=== PATIENT | female | born 1940 | race Caucasian/White ===

== ENCOUNTER 2017-04-29 09:01 | Inpatient (IN) ==
--- NOTE | 2017-04-26 21:54 | Discharge Summary ---
<Tena Carreon - Last Filed: 04/26/17 21:49> Date of Encounter: 04/26/17 - Discharge Diagnosis (1) Arthritis of right hip Priority: Primary Status: Acute (2) HTN (hypertension) Priority: Secondary Status: Chronic Qualifiers: Hypertension type: essential hypertension Qualified Code(s): I10 - Essential (primary) hypertension (3) CAD (coronary artery disease) Priority: Secondary Status: Chronic Qualifiers: Coronary Disease-Associated Artery/Lesion type: unspecified vessel or lesion type Associated angina: angina presence unspecified (4) COPD (chronic obstructive pulmonary disease) Priority: Secondary Status: Chronic Qualifiers: COPD type: unspecified COPD Qualified Code(s): J44.9 - Chronic obstructive pulmonary disease, unspecified (5) Tobacco use Priority: Secondary Status: Chronic (6) History of CA (myocardial infarction) Priority: Secondary Status: Chronic (7) AAA (abdominal aortic aneurysm) Priority: Secondary Status: Chronic Qualifiers: Presence of rupture: without rupture Qualified Code(s): I71.4 - Abdominal aortic aneurysm, without rupture - Discharge Medications Home Medications: Albuterol Sulfate [Albuterol Inhaler] 2 puff IH Q4HR PRN 09/19/15 [History] Atorvastatin [Lipitor] 80 mg PO DAILY 09/19/15 [History] Baclofen [Lioresal] 5 - 10 mg PO TID 09/19/15 [History] Carvedilol [Coreg] 3.125 mg PO BID 09/19/15 [History] Clopidogrel [Plavix] 75 mg PO DAILY 09/19/15 [History] LORazepam [Ativan] 0.5 mg PO TID 09/19/15 [History] Lisinopril [Zestril] 20 mg PO BID 09/19/15 [History] Omeprazole [PriLOSEC] 20 mg PO DAILY 09/19/15 [History] Aspirin Enteric Coated [Aspirin EC] 325 mg PO DAILY #21 tablet.dr 04/26/17 [Rx] OxyCODONE Immed Rel [Roxicodone 5 MG] 5 - 10 mg PO Q6HR PRN #40 tablet 04/26/17 [Rx] Aspirin [Lo-Dose Aspirin EC] 81 mg PO DAILY 04/29/17 [History] Calcium Carbonate/Vitamin D3 [Calcium 1,000 + D3 Caplet] 1 tab PO DAILY [History] Allergies/Adverse Reactions: Allergies Sulfa (Sulfonamide Antibiotics) Allergy (Unverified 04/29/17 09:44) Hives Primary care physician: Cornelius Butt CNP - Patient Status Disposition: Home, Self-Care Condition: Good - Discharge Instructions Follow Up With: Cornelius Butt CNP [Primary Care Provider] - - Hospital Course Hospital course: Ms. Olson is a 76 year old female - Time Spent with Patient Total time spent providing and/or coordinating discharge services: <Brigido Ritter - Last Filed: 04/30/17 08:06> Date of Encounter: 04/30/17 Time of Encounter: 08:06 - Discharge Diagnosis (1) Arthritis of right hip Priority: Primary Status: Acute (2) HTN (hypertension) Priority: Secondary Status: Chronic Qualifiers: Hypertension type: essential hypertension Qualified Code(s): I10 - Essential (primary) hypertension (3) CAD (coronary artery disease) Priority: Secondary Status: Chronic Qualifiers: Coronary Disease-Associated Artery/Lesion type: unspecified vessel or lesion type Associated angina: angina presence unspecified (4) COPD (chronic obstructive pulmonary disease) Priority: Secondary Status: Chronic Qualifiers: COPD type: unspecified COPD Qualified Code(s): J44.9 - Chronic obstructive pulmonary disease, unspecified (5) Tobacco use Priority: Secondary Status: Chronic (6) History of CA (myocardial infarction) Priority: Secondary Status: Chronic (7) AAA (abdominal aortic aneurysm) Priority: Secondary Status: Chronic Qualifiers: Presence of rupture: without rupture Qualified Code(s): I71.4 - Abdominal aortic aneurysm, without rupture (8) Acute blood loss anemia Priority: Primary Status: Acute Primary care physician: Cornelius Butt CNP - Patient Status Functional capacity at discharge: uses cane/walker Overall status at discharge: patient is progressing back to baseline - Hospital Course Hospital course: Ms. Olson is a 76 year old female The patient had an uneventful postoperative course. They received antibiotics and physical therapy and were discharged in stable condition. There will follow -up in the office in 2 weeks. Aspirin DVT prophylaxis - Time Spent with Patient Total time spent providing and/or coordinating discharge services:
[2017-04-29] MEDS ORDERED: Albuterol 2.5 MG/3 ML NEBULIZER IH ONE (09:20)
[2017-04-29] MEDS ORDERED: CeFAZolin Pre 2,000 MG/100 ML 2,000 MG/100 ML BAG IVPB ONE (09:20)
[2017-04-29] MEDS ORDERED: Ringers Solution, Lactated 1,000 ML IVC SCH (09:30)
--- NOTE | 2017-04-29 09:41 | History & Physical Report ---
Date of Encounter: 04/29/17 Time of Encounter: 09:41 24 Hour HP Update - Instructions Instructions: If the History and Physical is less than 30 days old and was completed prior to A.M. admission and or procedure and has NOT been updated on calendar day of procedure please complete this update prior to performing procedure. - Update Patient reports changes in Medical Condition: No Changes in examination, assessment, or condition: No Changes in Medication: No Preop tests/diagnostics Reviewed: Yes Surgery Remains Indicated: Yes Consent for Planned Operative Procedure(s) Verified: Yes - Pre-Operative Checklist Preoperative Checklist Indicated: No Prophylactic Antibiotic Ordered: Yes Is VTE Prophylaxis Indicated?: Yes
--- NOTE | 2017-04-29 09:55 | Anesthesia Evaluation PreOp ---
Date of Encounter: 04/29/17 Time of Encounter: 09:52 - Past History Planned Operation: r luisa Cardiac History: [place], HTN, Hyperlipidemia, Other (AAA) Pulmonary History: Smoker, Pack/yr (50), COPD, Snore, JASMIN Dx (unknown) PRINCIPAL SOLUTIONS ARCHITECT History: Denies Any Significant HX Other Medical History: Denies Any Significant HX, GERD (controlled), Other ( breast ca) Anesthesia History: No Prior Anesthetic Complications, Past Anesthesia ( hysterect, l breast lumpect) Alcohol Use: none Drug use: none Medications and Allergies Albuterol Sulfate [Albuterol Inhaler] 2 puff IH Q4HR PRN 09/19/15 [History] Atorvastatin [Lipitor] 80 mg PO DAILY 09/19/15 [History] Baclofen [Lioresal] 5 - 10 mg PO TID 09/19/15 [History] Carvedilol [Coreg] 3.125 mg PO BID 09/19/15 [History] Clopidogrel [Plavix] 75 mg PO DAILY 09/19/15 [History] LORazepam [Ativan] 0.5 mg PO TID 09/19/15 [History] Lisinopril [Zestril] 20 mg PO BID 09/19/15 [History] Omeprazole [PriLOSEC] 20 mg PO DAILY 09/19/15 [History] Aspirin Enteric Coated [Aspirin EC] 325 mg PO DAILY #21 tablet. 04/26/17 [Rx] OxyCODONE Immed Rel [Roxicodone 5 MG] 5 - 10 mg PO Q6HR PRN #40 tablet 04/26/17 [Rx] Aspirin [Lo-Dose Aspirin EC] 81 mg PO DAILY 04/29/17 [History] Calcium Carbonate/Vitamin D3 [Calcium 1,000 + D3 Caplet] 1 tab PO DAILY [History] Allergies Sulfa (Sulfonamide Antibiotics) Allergy (Unverified 04/29/17 09:44) Hives - Meds/Allergy Pre-op Review Medications Reviewed: Yes Allergies Reviewed: Yes Beta Blockers on Current Med List: Yes If Beta Blockers taken, Date/Time (Last Dose taken): coreg at 0800 Anesthesia Results - Labs Laboratory Tests 04/22/17 04/22/17 04/22/17 11:30 11:30 11:30 Hgb 12.6 Hct 39.8 Plt Count 304 PT 11.0 INR 1.0 APTT 28.2 Sodium 139 Potassium 4.3 Creatinine 0.66 - Imaging EKG: report reviewed (sr) Additional studies: CT: 2016 mid AAA 4.6x4.5 distal AAA 3x3.3 U/S abd 2017 mid Ao AAA 4.2x4.8 distal Ao AAA 2.9x3.4 Anesthesia Exam O2 Sat Height 1.63 m Height 1.63 m Height 1.63 m Weight 72.575 kg Weight 72.575 kg Weight 72.575 kg O2 Sat by Pulse Oximetry 98 Vital Signs Temp Pulse Resp BP Pulse Ox 97.8 F 79 18 142/81 98 04/29/17 09:20 04/29/17 09:20 04/29/17 09:20 04/29/17 09:20 04/29/17 09:20 Height: 1.63 Weight: 72 NPO (# of Hours): >8 - HEENT Pupil (Motor): Pupils equal, EOMI Mallampati: I Teeth: Edentulous Denture Type: Upper: Complete Oral Opening: Greater than 3 - PRINCIPAL SOLUTIONS ARCHITECT LOC: Oriented PRINCIPAL SOLUTIONS ARCHITECT Motor: Normal RUE, Normal LUE, Normal RLE, Normal LLE, Normal Face PRINCIPAL SOLUTIONS ARCHITECT Sensory: Normal: RUE, LUE, RLE, LLE, Face - Cardiac Rhythm: Regular Murmur: None - Pulmonary Breath Sounds: bilateral Clear Respiratory Effort: Symmetrical Anesthesia Assess/Plan ASA Score: 3 Modified Hang Scale for Level of Consciousness: Cooperative, oriented, and tranquil Anesthetic Plan: General Monitoring Plan: Standard Monitors Recovery Plan: PACU
[2017-04-29] MEDS ORDERED: Lidocaine -MPF 4% 5 ML AMPUL ONE (09:58)
[2017-04-29] MEDS ORDERED: *HR* Propofol 200 MG/20 ML VIAL IVP ONE (09:58)
[2017-04-29] MEDS ORDERED: Ondansetron 4 MG/2 ML VIAL ONE (09:58)
[2017-04-29] MEDS ORDERED: *HR* FentaNYL (PF) 100 MCG/2 ML VIAL ONE (09:58)
[2017-04-29] MEDS ORDERED: Dexamethasone 4 MG/ML VIAL ONE (09:58)
[2017-04-29] MEDS ORDERED: *HR* Succinylcholine 200 MG/10 ML VIAL IVP ONE (09:58)
[2017-04-29] MEDS ORDERED: Lidocaine -MPF 2% 2 ML VIAL ONE (09:58)
[2017-04-29] MEDS ORDERED: *HR* Midazolam HCl 2 MG/2 ML VIAL ONE (09:58)
[2017-04-29] MEDS ORDERED: Ketorolac 30 MG/ML VIAL ONE (09:59)
[2017-04-29] MEDS ORDERED: *HR* HYDROmorphone 2 MG/ML SYRINGE ONE (10:02)
[2017-04-29] MEDS ORDERED: *HR* HYDROmorphone (PF) 1 MG/ML SYRINGE IVP PRN ×2 (10:09→13:46)
[2017-04-29] MEDS ORDERED: *HR* Labetalol 20 MG/4 ML SYRINGE IVP PRN (10:09)
[2017-04-29] MEDS ORDERED: *HR* Promethazine 25 MG/ML VIAL IVP PRN (10:09)
[2017-04-29] MEDS ORDERED: CloNIDine Patch 0.1 MG PATCH (WEEKLY) TD SCH (10:15)
--- NOTE | 2017-04-29 12:11 | Orthopedic Operative Note ---
Date of procedure: 04/29/17 Pre-op diagnosis: right hip arthritis Post-op diagnosis: same Procedure: Procedure: Right Total Hip Replacment Estimated blood loss: 200 cc Hardware: Metal and polyethylene replacement. Biomet DM Cup: 52 G7 fin cup Femoral size 13 echo full profile lateralized stem Head: 6 head with Yennifer Procedural Notes: grade 4 arthritic changes femoral head and acetabular socket Operative procedure: The patient was brought to the operating room and placed on the operating room table. After general anesthesia was administered the patient was placed in the lateral decubitus position with the operative leg up. All pressure points were padded appropriately and the head was stabilized in the neutral position. The operative extremity was prepped and draped in the sterile surgical fashion patient received IV antibiotic prior to skin incision. A standard posterior approach is made to the operative hip, the incision was made through the skin and subcutaneous tissue hemostasis was obtained with Bovie cautery. Using careful sharp dissection the fascia was identified and incised exposing the external rotators. The external rotators were released off the greater trochanter and tagged with #2 FiberWire suture. The capsule was T'd open and the hip was brought into internal rotation. Patient noted to have grade 4 arthritic changes femoral head. The femoral neck cut was made at the appropriate level. An anterior capsulotomy was performed for the anterior retractor. Soft tissues removed from the acetabulum. Patient noted to have grade 4 arthritic changes acetabulum. Acetabulum was first reamed medially, and then reamed in 15 degrees of anteversion and 45 degrees off the horizontal. It was reamed up to the appropriate size 52. The appropriate-sized 52 acetabular cup was impacted in place in 15 degrees of anteversion and 45 degrees off the horizontal. This had good fit and fixation. The hip was brought back in to internal rotation and prepared with the farebox repairer followed by the canal finder followed by broaching process in 20 degrees anteversion. It was broached up to the appropriate size 13. The femoral implant was impacted in place in 20 degrees of anteversion. Trial reduction found the hip to be stable with 6 head and Yennifer. The trials were removed and the real implants were impacted in place. The hip was reduced, patient had apparent equal leg lengths. The hip had excellent stability with forward flexion to 90 degrees adduction of 30 degrees and internal rotation of 60 degrees. The hip had no shuck. The hips after 2 minutes with a Betadine saline solution. It was irrigated out with 2 L of pulse irrigation. The external rotators were reattached to drill holes in the greater trochanter. Fascia was closed with a running #2 PDS suture. The deep tissue was irrigated and closed deep with #1 PDS suture superficially with 0 PDS suture and skin was closed with Dermabond and skin guille. The patient was placed in a sterile dressing and abduction pillow. The patient was extubated and transferred to the recovery room in stable condition. Anesthesia: MAEVE Surgeon: Brigido Ritter Sales Property Manager: Tena Carreon Condition: stable Disposition: PACU
--- NOTE | 2017-04-29 13:28 | Anesthesia Evaluation Post Op ---
Date of Encounter: 04/29/17 Time of Encounter: 13:26 - Vital Signs Vital Signs: Vital Signs/O2 Sat/Glucose, Most Current Temp Pulse Resp BP Pulse Ox 04/29/17 13:19 98.6 F 92 16 111/71 97 04/29/17 13:09 98.6 F 92 16 120/74 98 04/29/17 12:59 95 16 102/64 97 04/29/17 12:49 85 16 100/61 98 04/29/17 12:39 97.2 F L 94 16 109/73 98 - Lungs Lungs: Clear Ascult./Percussion - Airway Airway: Non-obstructed - Cardiovascular Regular Rate - Mental Status Mental Status: Alert & Oriented, Answers Appropriately - Pain Pain Scale: 2 - Nausea Vomiting Nausea Vomiting: Not Present - Hydration Hydration: Tolerates oral liquids - Discharge PostOp Status: Transfer Patient to floor
[2017-04-29 13:43] LABS: Hematocrit 33.5 % (35.3-44.9)
[2017-04-29] MEDS ORDERED: Ondansetron 4 MG/2 ML VIAL IVP PRN (13:46)
[2017-04-29] MEDS ORDERED: Sennosides 8.6 MG TABLET PO PRN (13:46)
[2017-04-29] MEDS ORDERED: *HR* OxyCODONE Immed Rel 5 MG TABLET PO PRN (13:46)
[2017-04-29] MEDS ORDERED: Naloxone 0.4 MG/ML INJ IVP PRN (13:46)
[2017-04-29] MEDS ORDERED: Temazepam 15 MG CAPSULE PO PRN (13:46)
[2017-04-29] MEDS ORDERED: MOM Conc 10 ML UD.LIQ PO PRN (13:46)
[2017-04-29 13:48] LABS: Hemoglobin 10.8 g/dL (11.5-15.4)
[2017-04-29] MEDS: ceFAZolin 2,000 MG in D5% in Water 100 ML IVPB SCH (16:42)
[2017-04-29] MEDS: Baclofen 10 MG TABLET PO SCH ×2 (16:43→20:48)
[2017-04-29] MEDS: *HR* OxyCODONE Immed Rel 5 MG TABLET PO PRN ×2 (16:43→20:48)
[2017-04-29] MEDS: *HR* LORazepam 0.5 MG TABLET PO SCH ×2 (16:43→20:48)
[2017-04-29] MEDS: Ascorbic Acid 500 MG TABLET PO SCH (16:43)
[2017-04-29] MEDS: Albuterol 2.5 MG/3 ML NEBULIZER IH ONE ×2 (16:44→16:46)
[2017-04-29] MEDS: *HR* Enoxaparin 30 MG/0.3 ML SYRINGE SQ SCH (16:44)
[2017-04-29] MEDS ORDERED: *HR* Enoxaparin 30 MG/0.3 ML SYRINGE SQ SCH (18:00)
[2017-04-29] MEDS: Nicotine 21 MG PATCH.TD24 TD SCH (18:11)
[2017-04-29] MEDS: Lisinopril 20 MG TABLET PO SCH ×2 (20:49→20:57)
[2017-04-29] MEDS: Ringers Solution, Lactated 1,000 ML IVC SCH (21:50)
[2017-04-30] MEDS: Ringers Solution, Lactated 1,000 ML IVC SCH (00:30)
[2017-04-30] MEDS: ceFAZolin 2,000 MG in D5% in Water 100 ML IVPB SCH (00:40)
[2017-04-30 05:34] LABS: Hematocrit 28.6 % (35.3-44.9); Hemoglobin 9.3 g/dL (11.5-15.4)
[2017-04-30 05:53] LABS: BUN/Creatinine Ratio 19 (6-26); Blood Urea Nitrogen 13 mg/dL (7-20); Calcium 8.5 mg/dL (8.6-10.8); Carbon Dioxide 26 mEq/L (19-29); Chloride 104 mEq/L (98-109); Glucose 119 mg/dL (70-99); Osmolality,Calculated 287 (280-300); Sodium 138 mEq/L (136-145); eGFR For African Americans > 60 (> 60); eGFR For Non-African Americans > 60 (> 60)
[2017-04-30] MEDS: *HR* Enoxaparin 30 MG/0.3 ML SYRINGE SQ SCH (06:02)
[2017-04-30] MEDS: *HR* OxyCODONE Immed Rel 5 MG TABLET PO PRN (06:06)
--- NOTE | 2017-04-30 08:07 | Orthopedics Progress Note ---
Date of Encounter: 04/30/17 Time of Encounter: 08:07 - Assessment and Plan (1) Arthritis of right hip Current Visit: Yes Status: Acute (2) HTN (hypertension) Current Visit: Yes Status: Chronic Qualifiers: Hypertension type: essential hypertension Qualified Code(s): I10 - Essential (primary) hypertension (3) CAD (coronary artery disease) Current Visit: Yes Status: Chronic Qualifiers: Coronary Disease-Associated Artery/Lesion type: unspecified vessel or lesion type [place] vs. transplanted heart: [place] heart Associated angina: angina presence unspecified Qualified Code(s): I25.10 - Atherosclerotic heart disease of [place] coronary artery without angina pectoris (4) COPD (chronic obstructive pulmonary disease) Current Visit: Yes Status: Chronic Qualifiers: COPD type: unspecified COPD Qualified Code(s): J44.9 - Chronic obstructive pulmonary disease, unspecified (5) Tobacco use Current Visit: Yes Status: Chronic (6) History of [place] (myocardial infarction) Current Visit: Yes Status: Chronic (7) AAA (abdominal aortic aneurysm) Current Visit: Yes Status: Chronic Qualifiers: Presence of rupture: without rupture Qualified Code(s): I71.4 - Abdominal aortic aneurysm, without rupture (8) Acute blood loss anemia Current Visit: Yes Status: Acute Subjective Interval history: Patient was seen this morning doing well without complaints. Afebrile vital signs stable. Operative extremity: Neurovascularly intact Dressing clean dry and intact Calves nontender Assessment and plan: Continue with postoperative care Hemoglobin 9.3 discharged today Objective Vital signs: Vital Signs Temp Pulse Resp BP Pulse Ox 04/30/17 07:38 97.6 F 75 16 114/78 95 04/30/17 05:00 98.3 F 84 16 109/72 94 04/30/17 01:25 97.9 F 88 15 111/76 92 04/29/17 20:31 98.1 F 98 17 95/61 92 04/29/17 18:08 89 18 104/63 98 04/29/17 16:53 98.3 F 89 18 104/63 98 04/29/17 15:48 98.4 F 93 17 101/62 97 04/29/17 14:59 98.3 F 98 15 98/61 98 04/29/17 14:16 98.4 F 105 16 88/52 95 04/29/17 14:15 98.4 F 105 16 88/52 95 04/29/17 13:46 97.7 F 93 16 91/61 94 04/29/17 13:29 98.6 F 89 14 117/69 98 04/29/17 13:19 98.6 F 92 16 111/71 97 04/29/17 13:09 98.6 F 92 16 120/74 98 04/29/17 12:59 95 16 102/64 97 04/29/17 12:49 85 16 100/61 98 04/29/17 12:39 97.2 F L 94 16 109/73 98 04/29/17 09:20 97.8 F 79 18 142/81 98 Intake and Output 04/29/17 04/30/17 04/30/17 23:59 07:59 15:59 Intake Total 100 / 100 Output Total 400 / 400 Balance 100 / 100 -400 / -400 Intake: IV Fluids 100 / 100 Ancef 2,000 MG In 100 / 100 Dextrose 5% 100 ML @ 200 mls/hr IVPB Q8HR [facility] Rx#: [id number] Output: Urine 400 / 400 Other: Weight 78.5 kg Patient Weight 04/30/17 23:59 Weight 78.5 kg - Labs CBC & BMP: 04/30/17 04:41 04/30/17 04:41 Labs: Abnormal lab results Hgb 9.3 g/dL (11.5-15.4) L D 04/30/17 04:41 Hct 28.6 % (35.3-44.9) L 04/30/17 04:41 Glucose 119 mg/dL (70-99) H 04/30/17 04:41 Calcium 8.5 mg/dL (8.6-10.8) L 04/30/17 04:41 - VTE Documentation of Mechanical Device: Venous foot pump, device Consult Discharge Plan - Plan Referrals: Cornelius Butt CNP [Primary Care Provider] -
[2017-04-30] MEDS: Baclofen 10 MG TABLET PO SCH (08:39)
[2017-04-30] MEDS: Nicotine 21 MG PATCH.TD24 TD SCH (08:40)
[2017-04-30] MEDS: *HR* LORazepam 0.5 MG TABLET PO SCH (08:40)
[2017-04-30] MEDS: Ascorbic Acid 500 MG TABLET PO SCH (08:40)
[2017-04-30] MEDS: Lisinopril 20 MG TABLET PO SCH (08:41)
[2017-04-30] MEDS ORDERED: CALCIUM CARBONATE PO SCH (09:00)
[2017-04-30] MEDS ORDERED: Multivit/Ca/Min/Fe/FA 1 TAB TABLET PO SCH (09:00)
[2017-04-30] MEDS ORDERED: Aspirin Enteric Coated 81 MG Tablet PO SCH (09:00)
[2017-04-30] MEDS ORDERED: VITAMIN D3 PO SCH (09:00)
[2017-04-30 11:11] VITALS: BP 91/58
== END 2017-04-30 13:25 | disposition home health service (06) | DRG 470 ==
LOC: SAMDAY 09:01 → 3NENU 13:34
PROVIDERS: ADMIT Orthopaedic Surgery; ATTEND Orthopaedic Surgery

== ENCOUNTER 2017-12-30 15:22 | Inpatient (IN) ==
--- NOTE | 2017-12-30 18:59 | Internal Med History&Physical ---
Date of Encounter: 12/30/17 Time of Encounter: 18:50 Assessment and Plan (1) Iron deficiency anemia Current visit: Yes Status: Acute Patient with hemoglobin of 5.6 MCV 69 was 82 in November failure likely severe iron deficiency anemia secondary to chronic blood loss Qualifiers: Iron deficiency anemia type: unspecified iron deficiency Qualified Code(s) : D50.9 - Iron deficiency anemia, unspecified (2) Acute blood loss anemia Current visit: No Status: Acute Acute on chronic GI bleed very likely upper GI bleeding will keep patient nothing by mouth after midnight Dr. Riddle has been consulted will give additional 2 units of blood (3) AAA (abdominal aortic aneurysm) Current visit: No Status: Chronic The patient last evaluation aneurysm 4.9 no surgical indication at this point Qualifiers: Presence of rupture: without rupture Qualified Code(s): I71.4 - Abdominal aortic aneurysm, without rupture (4) CAD (coronary artery disease) Current visit: No Status: Chronic No chest pain despite severe anemia Qualifiers: Coronary Disease-Associated Artery/Lesion type: [place] artery [place] vs. transplanted heart: [place] heart Associated angina: angina presence unspecified Qualified Code(s): I25.10 - Atherosclerotic heart disease of [place] coronary artery without angina pectoris (5) COPD (chronic obstructive pulmonary disease) Current visit: No Status: Chronic Chronic with some decreased breath sounds bilaterally and some wheezing resume home medication Qualifiers: COPD type: emphysema Emphysema type: unspecified Qualified Code(s): J43.9 - Emphysema, unspecified (6) HTN (hypertension) Current visit: No Status: Chronic Chronic and not well controlled we will continue home medication Qualifiers: Hypertension type: essential hypertension Qualified Code(s): I10 - Essential (primary) hypertension (7) Tobacco use Current visit: No Status: Chronic Chronic Internal Medicine - H&P: HPI Chief complaint: gi bleed Admitted From: Intrahospital Transfer Plans for Post Hospital Care: Home History of present illness: Ms. Olson is a 77 year old female Patient with history of breast cancer about 8 years ago underwent radiation, COPD, CAD said had [place] 3 years ago had a cardiac cath no intervention done also smoking history and abdominal aneurysm 4.9 cm followed every 6 months studies. Patient was sent to the emergency room by primary physician due to anemia hemoglobin was about 6 she was sent to [facility] emergency room ER hemoglobin was 5.6 patient has symptoms generalized weakness, shortness of breath especially with exertion and palpitation also she is dizzy and lightheaded especially with exertio ./ DR Riddle has been notified and asked her to to be transferred here for further evaluation she was given 1 unit of blood transfusion. Of note she is not having any chest pain Past Med Surg Social Fam HX - Past Medical History Medical history: cancer, COPD, myocardial infarction, other Psychiatric history: no psych history - Past Surgical History Surgical History: breast surgery, hysterectomy, other - Social History Smoking Status: Current every day smoker Smokeless Tobacco Status: No Alcohol use: none Drug use: none - Family History Mother Adopted: No Hx Family Cardiac Disorders: Yes ([place], HTN) Internal Medicine - H&P: Meds Albuterol Sulfate [Albuterol Inhaler] 2 puff IH Q4HR PRN 09/19/15 [History] Atorvastatin [Lipitor] 80 mg PO DAILY 09/19/15 [History] Baclofen [Lioresal] 5 - 10 mg PO TID 09/19/15 [History] Carvedilol [Coreg] 3.125 mg PO BID 09/19/15 [History] Clopidogrel [Plavix] 75 mg PO DAILY 09/19/15 [History] LORazepam [Ativan] 0.5 mg PO TID 09/19/15 [History] Omeprazole [PriLOSEC] 20 mg PO DAILY 09/19/15 [History] Calcium Carbonate/Vitamin D3 [Calcium 1,000 + D3 Caplet] 1 tab PO DAILY [History] Aspirin Enteric Coated [Aspirin EC] 81 mg PO DAILY 12/30/17 [History] HYDROcodone/Acet 7.5/325 mg [[place] 7.5-325 mg] 1 tab PO Q6H PRN 12/30/17 [ History] Hydrochlorothiazide [Microzide] 12.5 mg PO DAILY 12/30/17 [History] 3 Allergy/AdvReac Type Severity Reaction Status Date / Time Sulfa (Sulfonamide Allergy Hives Verified 12/30/17 15:35 Antibiotics) All Systems PM: A 10-system review of systems was performed and is negative for pertinent findings except as documented above in the HPI. - Constitutional Constitutional: fatigue, lethargy, weakness - EENT Eyes: no change in vision, no discharge, no pain, no photophobia Ears: no ear discharge, no ear pain, no tinnitus Nose, mouth and throat: no dysphagia, no nasal discharge, no neck pain, no sore throat - Cardiovascular Cardiovascular ROS IM: dyspnea, dyspnea on exertion, lightheadedness - Respiratory Respiratory: dyspnea, dyspnea on exertion - Gastrointestinal Gastrointestinal: other - Neurological Neurological ROS: no confusion, no convulsions, no focal weakness, no numbness, no tingling, no tremor(s) - Constitutional Vitals: Temp Pulse Resp BP Pulse Ox 98.3 F 98 16 154/78 95 12/30/17 17:51 12/30/17 17:51 12/30/17 17:51 12/30/17 17:51 12/30/17 17:51 General appearance: Present: A&O X 3 - Head Head exam: Present: atraumatic, normocephalic - Eye Eye exam: Present: PERRL, conjuntiva pink, sclera anicteric Pupils: Present: PERRL - Respiratory Respiratory exam: Present: prolonged expiratory phase, rhonchi - Cardiovascular Cardiovascular exam: Present: systolic murmur - GI/Abdominal GI/Abdominal exam: Present: soft - Extremities Exam Extremities exam: Present: warm, radial pulses palpable and symmetrical. Absent : calf tenderness, cyanotic, pedal edema
[2017-12-30] MEDS ORDERED: Ondansetron 4 MG/2 ML VIAL IVP PRN (19:09)
[2017-12-30] MEDS ORDERED: Naloxone 0.4 MG/ML INJ IVP PRN (19:09)
[2017-12-30] MEDS ORDERED: *HR* HYDROcodone/Acet 7.5/325 mg TABLET PO PRN (19:19)
[2017-12-30] MEDS ORDERED: Ipratropium/Albuterol Neb 3 ML IH PRN (19:21)
[2017-12-30] MEDS ORDERED: Ipratropium/Albuterol Neb 3 ML ONE (19:42)
[2017-12-30] MEDS: Ipratropium/Albuterol Neb 3 ML IH SCH (20:58)
[2017-12-30] MEDS: 0.9 % Sodium Chloride 1,000 ML IVC SCH (21:49)
[2017-12-30] MEDS: Baclofen 10 MG TABLET PO SCH (22:33)
[2017-12-30] MEDS: *HR* LORazepam 0.5 MG TABLET PO SCH (22:33)
[2017-12-31] MEDS: Ipratropium/Albuterol Neb 3 ML IH SCH ×7 (00:21→23:51)
[2017-12-31 02:44] LABS: Alanine Aminotransferase 8 Units/L (7-52); Albumin 3.6 g/dL (3.5-5.7); Albumin/Globulin Ratio 1.5 (1.1-2.2); Alkaline Phosphatase 64 Units/L (34-104); Aspartate Amino Transferase 10 Units/L (13-39); BUN/Creatinine Ratio 22 (6-26); Bilirubin,Total 0.5 mg/dL (0.3-1.0); Blood Urea Nitrogen 15 mg/dL (8-23); Calcium 9.1 mg/dL (8.6-10.3); Carbon Dioxide 26 mEq/L (23-29); Chloride 107 mEq/L (98-107); Chol/HDL Ratio 2.1 (0-4.9); Cholesterol 136 mg/dL (< 200); Globulin 2.4 g/dL (2.4-3.5); Glucose 81 mg/dL (70-105); HDL Cholesterol 65 mg/dL (40-59); LDL Cholesterol,Calculated 59 mg/dL (0-99); Magnesium 2.1 mg/dL (1.6-2.6); Osmolality,Calculated 290 (280-300); Sodium 140 mEq/L (136-145); Triglycerides 62 mg/dL (< 150); eGFR For African Americans > 60 (> 60); eGFR For Non-African Americans > 60 (> 60)
--- NOTE | 2017-12-31 07:05 | Internal Med Progress Note ---
<John Campos - Last Filed: 12/31/17 15:42> Date of Encounter: 12/31/17 Time of Encounter: 07:30 - Assessment and plan (1) Iron deficiency anemia Current Visit: Yes Status: Acute Assessment and plan: Patient with hemoglobin of 5.6 MCV 69 was 82 in November failure likely severe iron deficiency anemia secondary to chronic blood loss -2U of pRBCs were ordered -Ferrous sulfate 325 mg PO BIDWM -Anemia workup ordered -Plan is to scope tomorrow Qualifiers: Iron deficiency anemia type: unspecified iron deficiency Qualified Code(s) : D50.9 - Iron deficiency anemia, unspecified (2) Acute blood loss anemia Current Visit: No Status: Acute Assessment and plan: Acute on chronic GI bleed very likely upper GI bleeding -Dr. Riddle has been consulted; will give additional 2 units of blood -Currently NPO -IV Protonix (3) AAA (abdominal aortic aneurysm) Current Visit: No Status: Chronic Assessment and plan: The patient last evaluation aneurysm 4.9 No surgical indication at this point Qualifiers: Presence of rupture: without rupture Qualified Code(s): I71.4 - Abdominal aortic aneurysm, without rupture (4) CAD (coronary artery disease) Current Visit: No Status: Chronic Assessment and plan: No chest pain despite severe anemia Qualifiers: Coronary Disease-Associated Artery/Lesion type: circle artery [place] vs. transplanted heart: circle heart Associated angina: angina presence unspecified Qualified Code(s): I25.10 - Atherosclerotic heart disease of [place] coronary artery without angina pectoris (5) COPD (chronic obstructive pulmonary disease) Current Visit: No Status: Chronic Assessment and plan: Chronic with some decreased breath sounds b/l and some wheezing resume home medication Qualifiers: COPD type: emphysema Emphysema type: unspecified Qualified Code(s): J43.9 - Emphysema, unspecified (6) HTN (hypertension) Current Visit: No Status: Chronic Assessment and plan: Chronic; continue home medication Coreg 3.125 mg PO BID Qualifiers: Hypertension type: essential hypertension Qualified Code(s): I10 - Essential (primary) hypertension (7) Hypokalemia Current Visit: Yes Status: Acute Assessment and plan: Potassium is low at 3.0. (8) Tobacco use Current Visit: No Status: Chronic Assessment and plan: Chronic - Subjective Interval history: Ms. Olson is a 77 year old female with a PMH of breast cancer 8 years ago s/p radiation, COPD, CAD DC s/p cardiac cath, tobacco use and abdominal aneurysm 4.9 cm. Patient was sent to [facility] on 12/30/17 by PCP due to anemia; her hemoglobin was approximately 6. Upon presentation to [facility], her hemoglobin was 5.6. Patient had generalized weakness, SOB exacerbated by exertion, palpitations, dizziness and lightheadedness. Dr. Riddle was notified; asked her to be transferred here for further evaluation. She was given 1 unit of pRBCs. Denied having any chest pain. On arrival, HR was 98 bpm, and BP was elevated at 154/78. All other vital signs were within normal limits. Patient seen and examined at bedside this morning. Admits to having some dizziness and mils SOB. Currently on O2 via NC; reports a slight improvement in her breathing with the oxygen. Denies chest or abdominal pain. No further complaints at this time. - Constitutional Vitals: Temp Pulse Resp BP Pulse Ox 98.8 F 91 14 122/65 91 12/31/17 04:33 12/31/17 04:33 12/31/17 04:33 12/31/17 04:33 12/31/17 04:33 General appearance: Present: A&O X 3 - Head Head exam: Present: atraumatic, normocephalic - Eye Eye exam: Present: PERRL, conjuntiva pink, sclera anicteric Pupils: Present: PERRL - Neck Neck exam general surgery: Present: supple, trachea midline. Absent: lymphadenopathy - Respiratory Respiratory exam: Present: CTAB. Absent: accessory muscle use, rales, rhonchi, wheezes - Cardiovascular Cardiovascular exam: Present: RRR, +S1, +S2. Absent: diastolic murmur, gallop, rubs, systolic murmur - GI/Abdominal GI/Abdominal exam: Present: normal bowel sounds, soft, no peritoneal signs. Absent: distended, tenderness - Extremities Exam Extremities exam: Present: warm, radial pulses palpable and symmetrical. Absent : calf tenderness, cyanotic, pedal edema - Neurological Exam Neurological exam: Present: CN II-XII intact, oriented X3, no focal deficits. Absent: pronater drift, facial droop, speech deficit - Skin Skin exam: Present: dry, intact Internal Medicine: Result - Labs CBC & Chem 7: 12/31/17 07:58 12/31/17 00:54 Labs: BMP 12/31/17 00:54 Sodium 140 Potassium 3.0 L Chloride 107 Carbon Dioxide 26 BUN 15 Creatinine 0.69 Glucose 81 Calcium 9.1 Cardiac Enzymes 12/30/17 12/31/17 Range/Units 20:27 00:54 Troponin I < 0.03 < 0.03 (< 0.04) ng/mL Liver Function 12/31/17 Range/Units 00:54 Total Bilirubin 0.5 (0.3-1.0) mg/dL AST 10 L (13-39) Units/L ALT 8 (7-52) Units/L Alkaline Phosphatase 64 (34-104) Units/L Albumin 3.6 (3.5-5.7) g/dL Consult Discharge Plan - Plan Referrals: Evelyn Epps CNP [Primary Care Provider] - 01/11/18 3:00 pm <Sarath Sepulveda - Last Filed: 12/31/17 17:39> Date of Encounter: 12/31/17 - Constitutional Vitals: Temp Pulse Resp BP Pulse Ox 98.3 F 102 16 121/77 93 12/31/17 17:37 12/31/17 17:37 12/31/17 17:37 12/31/17 17:37 12/31/17 17:37 Internal Medicine: Result - Labs CBC & Chem 7: 12/31/17 07:58 12/31/17 00:54 Labs: Short CBC 12/31/17 Range/Units 07:58 Hgb 7.2 L D (11.5-15.4) g/dL Hct 24.5 L (35.3-44.9) % [facility] 12/31/17 00:54 Sodium 140 Potassium 3.0 L Chloride 107 Carbon Dioxide 26 BUN 15 Creatinine 0.69 Glucose 81 Calcium 9.1 Cardiac Enzymes 12/30/17 12/31/17 12/31/17 Range/Units 20:27 00:54 06:53 Troponin I < 0.03 < 0.03 < 0.03 (< 0.04) ng/mL Liver Function 12/31/17 Range/Units 00:54 Total Bilirubin 0.5 (0.3-1.0) mg/dL AST 10 L (13-39) Units/L ALT 8 (7-52) Units/L Alkaline Phosphatase 64 (34-104) Units/L Albumin 3.6 (3.5-5.7) g/dL - Attending Attestation I examined this patient and my medical decision-making was reviewed with the Resident Physician. I agree with the documented findings, disposition and treatment plan as described except to the extent set forth below. She will have upper and lower endoscopy tomorrow, she is no longer candidate for dual antiplatelet therapy. This is Dr. Claude Sepulveda
[2017-12-31] MEDS ORDERED: Potassium Chloride 40 MEQ, Lidocaine 1% 2 ML in D5% in Water 500 ML IVPB ONE (07:25)
[2017-12-31] MEDS ORDERED: 0.9 % Sodium Chloride 250 ML ONE ×2 (08:36→17:15)
[2017-12-31] MEDS: Baclofen 10 MG TABLET PO SCH ×3 (08:41→21:41)
[2017-12-31] MEDS: *HR* LORazepam 0.5 MG TABLET PO SCH ×3 (08:41→21:41)
[2017-12-31] MEDS: Pantoprazole 40 MG VIAL IVP SCH ×2 (08:44→21:41)
[2017-12-31] MEDS ORDERED: Furosemide 20 MG/2 ML VIAL IVP ONE ×2 (08:46→20:45)
[2017-12-31 08:59] LABS: Hematocrit 24.5 % (35.3-44.9); Hemoglobin 7.2 g/dL (11.5-15.4)
[2017-12-31] MEDS ORDERED: Pantoprazole 40 MG VIAL IVP SCH (09:00)
[2017-12-31] MEDS ORDERED: CALCIUM CARBONATE PO SCH (09:00)
[2017-12-31] MEDS ORDERED: VITAMIN D3 PO SCH (09:00)
[2017-12-31 09:30] LABS: Ferritin 13 ng/ml (10-120); Iron < 10 mcg/dL (50-170); Transferrin 360 mg/dL (203-362)
[2017-12-31 10:11] LABS: Folate 21.8 ng/mL (3.0-16.0)
--- NOTE | 2017-12-31 17:02 | Gastroenterology Consult Note ---
<Terri Avila M - Last Filed: 12/31/17 16:57> Date of Encounter: 12/31/17 Time of Encounter: 13:15 - Assessment and plan (1) Iron deficiency anemia Current Visit: Yes Status: Acute Assessment and plan: Pt presents with anemia. She has not felt well in a month. Iron level is less than 10, she is getting PO replacement, she may need IV. She denies any active bleeding. Continue PPI. Will prep and plan for EGD/Colonoscopy tomorrow. Qualifiers: Iron deficiency anemia type: unspecified iron deficiency Qualified Code(s) : D50.9 - Iron deficiency anemia, unspecified - Time Spent With Patient Total time spent is greater than 50% in coordination of care (as documented) at patient's floor/unit and/or counseling patient: GI History of Present Illness - Data of Consult Patient: new to practice Consult date: 12/31/17 Requesting Physician: Sarath Sepulveda - Consult Narrative Reason for consult: anemia History of present illness: Ms. Olson is a 77 year old female with pmhistory of breast cancer about 8 years ago s/p mastectomy and radiation, COPD, CAD,had [place] 3 years ago, and abdominal aneurysm 4.9 cm followed every 6 months studies. She was sent to ER by PCP for anemia. She denies any abdominal pain, nausea, vomiting, diarrhea or constipation. She denies bloody or tarry stools. She states she has been weak and dizzy since November. She denies GERD or dysphagia.She denies any coronary stents, pacemaker or defibrillator. Colon: 2002 EGD denies NSAIDS: baby asa Anticoagulants: plavix Past Med Surg Social Fam HX - Past Medical History Medical history: cancer, COPD, myocardial infarction, other Psychiatric history: no psych history - Past Surgical History Surgical History: breast surgery, hysterectomy, other - Social History Smoking Status: Current every day smoker Smokeless Tobacco Status: No Alcohol use: none Drug use: none - Family History Mother Adopted: No Hx Family Cardiac Disorders: Yes ([place], HTN) Review of Systems: GI: as per [place] GENERAL: denies fever, has some chills EYES: denies yellow discoloration ENT: denies pain with swallowing or difficulty swallowing CARDIO: denies chest pain, palpitations RESP: Shortness of breath with exertion : denies change in color of urine NEURO: increased weakness HEME: Denies any bruising MS: denies joint pain, joint swelling or back pain. DERM: denies rash or itching PSYCH: Denies history of anxiety or depression - Constitutional Vitals: Temp Pulse Resp BP Pulse Ox 97.5 F L 88 16 109/75 92 12/31/17 13:52 12/31/17 13:52 12/31/17 15:37 12/31/17 13:52 12/31/17 15:37 Exam: CONSTITUTIONAL:~alert, no acute distress.~HEAD:~normocephalic.~EYES:~no jaundice.~NECK:~no obvious swelling.~HEART:~regular rate and rhythm, no murmurs. ~LUNGS:~bilateral good air entry, mastectomy scar.~ABDOMEN:~non distended, soft , non tender, no masses palpable, no organomegaly.~RECTAL EXAM:~Deferred.~ EXTREMITIES:~no clubbing, cyanosis or edema.~SKIN:~pallor noted, no stigmata of chronic liver disease.~NEUROLOGIC:~no obvious focal defect.~~~~ Results - Labs CBC & Chem 7: 12/31/17 07:58 12/31/17 00:54 Labs: Last Result Calcium 9.1 mg/dL (8.6-10.3) 12/31/17 00:54 Iron < 10 mcg/dL (50-170) L 12/31/17 08:51 % Saturation TNP 12/31/17 08:51 Transferrin 360 mg/dL (203-362) 12/31/17 08:51 Ferritin 13 ng/ml (10-120) 12/31/17 08:51 Troponin I < 0.03 ng/mL (< 0.04) 12/31/17 06:53 Triglycerides 62 mg/dL (< 150) 12/31/17 00:54 Vitamin B12 390 pg/mL (250-1100) 12/31/17 08:51 Folate 21.8 ng/mL (3.0-16.0) H 12/31/17 08:51 Entire Visit Hgb 7.2 g/dL (11.5-15.4) L D 12/31/17 07:58 Hct 24.5 % (35.3-44.9) L 12/31/17 07:58 Ferritin 13 ng/ml (10-120) 12/31/17 08:51 Total Bilirubin 0.5 mg/dL (0.3-1.0) 12/31/17 00:54 AST 10 Units/L (13-39) L 12/31/17 00:54 ALT 8 Units/L (7-52) 12/31/17 00:54 Folate 21.8 ng/mL (3.0-16.0) H 12/31/17 08:51 Consult Discharge Plan - Plan Referrals: Evelyn Epps CNP [Primary Care Provider] - 01/11/18 3:00 pm <Elisa Riddle - Last Filed: 12/31/17 21:28> Date of Encounter: 12/31/17 Time of Encounter: 17:00 - Time Spent With Patient Total time spent is greater than 50% in coordination of care (as documented) at patient's floor/unit and/or counseling patient: GI History of Present Illness - Data of Consult Requesting Physician: Sarath Sepulveda - Consult Narrative History of present illness: Ms. Olson is a 77 year old female - Constitutional Vitals: Temp Pulse Resp BP Pulse Ox 98.0 F 89 16 125/85 95 12/31/17 20:50 12/31/17 20:50 12/31/17 20:50 12/31/17 20:50 12/31/17 20:50 Results - Labs CBC & Chem 7: 12/31/17 17:18 12/31/17 00:54 Labs: Last Result Calcium 9.1 mg/dL (8.6-10.3) 12/31/17 00:54 Iron < 10 mcg/dL (50-170) L 12/31/17 08:51 % Saturation TNP 12/31/17 08:51 Transferrin 360 mg/dL (203-362) 12/31/17 08:51 Ferritin 13 ng/ml (10-120) 12/31/17 08:51 Troponin I < 0.03 ng/mL (< 0.04) 12/31/17 06:53 Triglycerides 62 mg/dL (< 150) 12/31/17 00:54 Vitamin B12 390 pg/mL (250-1100) 12/31/17 08:51 Folate 21.8 ng/mL (3.0-16.0) H 12/31/17 08:51 Entire Visit Hgb 9.1 g/dL (11.5-15.4) L D 12/31/17 17:18 Hct 29.7 % (35.3-44.9) L 12/31/17 17:18 Ferritin 13 ng/ml (10-120) 12/31/17 08:51 Total Bilirubin 0.5 mg/dL (0.3-1.0) 12/31/17 00:54 AST 10 Units/L (13-39) L 12/31/17 00:54 ALT 8 Units/L (7-52) 12/31/17 00:54 Folate 21.8 ng/mL (3.0-16.0) H 12/31/17 08:51 - Attending Attestation I examined this patient and my medical decision-making was reviewed with the WAVE SOLDERING MACHINE OPERATOR. I agree with the documented findings, disposition and treatment plan as described except to the extent set forth below. Pt with severe JAY, no overt bleeding. Rec: Replace iron, EGD/colon
[2017-12-31] MEDS ORDERED: SODIUM CHLORIDE/NAHCO3/KCL/PEG 4,000 ML SOLN.RECON PO ONE (17:07)
[2017-12-31 17:46] LABS: Hematocrit 29.7 % (35.3-44.9)
[2017-12-31 17:48] LABS: Hemoglobin 9.1 g/dL (11.5-15.4)
[2018-01-01] MEDS: Ipratropium/Albuterol Neb 3 ML IH SCH ×6 (04:09→23:32)
[2018-01-01] MEDS: Baclofen 10 MG TABLET PO SCH ×3 (10:11→22:05)
[2018-01-01] MEDS: *HR* LORazepam 0.5 MG TABLET PO SCH ×3 (10:11→22:06)
[2018-01-01] MEDS: Pantoprazole 40 MG VIAL IVP SCH ×2 (10:11→22:06)
--- NOTE | 2018-01-01 11:34 | Internal Med Progress Note ---
Date of Encounter: 01/01/18 Time of Encounter: 11:31 - Assessment and plan (1) Iron deficiency anemia Current Visit: Yes Status: Acute Assessment and plan: Patient severe iron deficiency anemia iron supplement instituted Qualifiers: Iron deficiency anemia type: unspecified iron deficiency Qualified Code(s) : D50.9 - Iron deficiency anemia, unspecified (2) Acute blood loss anemia Current Visit: No Status: Acute Assessment and plan: Acute blood loss EGD planned sometime today (3) AAA (abdominal aortic aneurysm) Current Visit: No Status: Chronic Assessment and plan: The patient measured 4.9 cm no surgery indicated Qualifiers: Presence of rupture: without rupture Qualified Code(s): I71.4 - Abdominal aortic aneurysm, without rupture (4) CAD (coronary artery disease) Current Visit: No Status: Chronic Assessment and plan: No chest pain despite severe anemia Qualifiers: Coronary Disease-Associated Artery/Lesion type: [place] artery [place] vs. transplanted heart: [place] heart Associated angina: angina presence unspecified Qualified Code(s): I25.10 - Atherosclerotic heart disease of [place] coronary artery without angina pectoris (5) COPD (chronic obstructive pulmonary disease) Current Visit: No Status: Chronic Assessment and plan: Chronic no active wheezing Qualifiers: COPD type: emphysema Emphysema type: unspecified Qualified Code(s): J43.9 - Emphysema, unspecified (6) HTN (hypertension) Current Visit: No Status: Chronic Qualifiers: Hypertension type: essential hypertension Qualified Code(s): I10 - Essential (primary) hypertension (7) Tobacco use Current Visit: No Status: Chronic - Subjective Interval history: Patient admitted with severe iron deficiency anemia seen by Dr. Pompa and EGD is planned today . Received blood transfusion hemoglobin is stable also on iron supplement - Constitutional Vitals: Temp Pulse Resp BP Pulse Ox 98.8 F 94 18 120/71 90 01/01/18 11:04 01/01/18 11:04 01/01/18 11:04 01/01/18 11:04 01/01/18 11:04 General appearance: Present: A&O X 3 - Head Head exam: Present: atraumatic, normocephalic - Eye Eye exam: Present: PERRL, conjuntiva pink, sclera anicteric Pupils: Present: PERRL - Neck Neck exam general surgery: Present: supple, trachea midline. Absent: lymphadenopathy - Respiratory Respiratory exam: Present: CTAB. Absent: accessory muscle use, rales, rhonchi, wheezes - Cardiovascular Cardiovascular exam: Present: RRR, +S1, +S2. Absent: diastolic murmur, gallop, rubs, systolic murmur - GI/Abdominal GI/Abdominal exam: Present: normal bowel sounds, soft, no peritoneal signs. Absent: distended, tenderness - Extremities Exam Extremities exam: Present: warm, radial pulses palpable and symmetrical. Absent : calf tenderness, cyanotic, pedal edema - Neurological Exam Neurological exam: Present: CN II-XII intact, oriented X3, no focal deficits. Absent: pronater drift, facial droop, speech deficit - Skin Skin exam: Present: dry, intact Internal Medicine: Result - Labs CBC & Chem 7: 01/01/18 00:43 01/01/18 08:23 Labs: Short CBC 12/31/17 01/01/18 Range/Units 17:18 00:43 Hgb 9.1 L D 10.0 L (11.5-15.4) g/dL Hct 29.7 L 32.0 L (35.3-44.9) % BMP 01/01/18 08:23 Potassium 3.0 L - Impressions Impressions Head CT 12/31/17 18:41 IMPRESSION: Mild small vessel ischemic changes bilaterally No parenchymal or extra-axial hematoma. D/ / Isac Brand / Isac Brand Interpreting Provider: Isac Brand Consult Discharge Plan - Plan Referrals: Evelyn Epps, EVALUATION ANALYST [Primary Care Provider] - 01/11/18 3:00 pm
--- NOTE | 2018-01-01 14:05 | Anesthesia Evaluation PreOp ---
<KennKylah Nolan - Last Filed: 01/01/18 14:06> Date of Encounter: 01/01/18 Time of Encounter: 14:02 - Past History Planned Operation: EGD/Colon re: Fe+2 defic anemia/acute on Chronic GIB Cardiac History: [place] (2014 maintained on Plavix, ASA), HTN (maintained on Caredilol, Hctz), Hyperlipidemia (maintained on Atorvastatin), Other (AAA, CAD maintained on ASA, Plavix) Pulmonary History: Smoker, COPD (maintained on Albuterol) ELECTRIC SHIPYARD OPERATOR History: Other (Anxiety/Depression maitnained on ATivan) Other Medical History: GERD (maintained on Omeprazole), Other (Hx of Breast CA s /p) Anesthesia History: No Prior Anesthetic Complications, Past Anesthesia (Breast srugery, Hyster,) Alcohol Use: none Drug use: none Medications and Allergies Albuterol Sulfate [Albuterol Inhaler] 2 puff IH Q4HR PRN 09/19/15 [History] Atorvastatin [Lipitor] 80 mg PO DAILY 09/19/15 [History] Baclofen [Lioresal] 5 - 10 mg PO TID 09/19/15 [History] Carvedilol [Coreg] 3.125 mg PO BID 09/19/15 [History] Clopidogrel [Plavix] 75 mg PO DAILY 09/19/15 [History] LORazepam [Ativan] 0.5 mg PO TID PRN 09/19/15 [History] Omeprazole [PriLOSEC] 20 mg PO DAILY 09/19/15 [History] Calcium Carbonate/Vitamin D3 [Calcium 1,000 + D3 Caplet] 1 tab PO DAILY [History] Aspirin Enteric Coated [Aspirin EC] 81 mg PO DAILY 12/30/17 [History] HYDROcodone/Acet 7.5/325 mg [[place] 7.5-325 mg] 1 tab PO Q6H PRN 12/30/17 [ History] Hydrochlorothiazide [Microzide] 12.5 mg PO DAILY 12/30/17 [History] Lisinopril [Zestril] 20 mg PO DAILY 12/31/17 [History] 3 Allergy/AdvReac Type Severity Reaction Status Date / Time Sulfa (Sulfonamide Allergy Hives Verified 12/30/17 15:35 Antibiotics) - Meds/Allergy Pre-op Review Medications Reviewed: Yes Allergies Reviewed: Yes Beta Blockers on Current Med List: No Anesthesia Results - Labs 01/01/18 00:43 01/01/18 08:23 Laboratory Results Hgb 10.0 g/dL (11.5-15.4) L 01/01/18 00:43 Hct 32.0 % (35.3-44.9) L 01/01/18 00:43 Sodium 140 mEq/L (136-145) 12/31/17 00:54 Potassium 3.0 mEq/L (3.5-5.1) L 01/01/18 08:23 Chloride 107 mEq/L (98-107) 12/31/17 00:54 Carbon Dioxide 26 mEq/L (23-29) 12/31/17 00:54 BUN 15 mg/dL (8-23) 12/31/17 00:54 Creatinine 0.69 mg/dL (0.60-1.20) 12/31/17 00:54 Est GFR ( Amer) > 60 (> 60) 12/31/17 00:54 Est GFR (Non-Af Amer) > 60 (> 60) 12/31/17 00:54 BUN/Creatinine Ratio 22 (6-26) 12/31/17 00:54 Glucose 81 mg/dL (70-105) 12/31/17 00:54 POC Glucose 116 (58-89) H 01/01/18 11:08 Calculated Osmolality 290 (280-300) 12/31/17 00:54 Calcium 9.1 mg/dL (8.6-10.3) 12/31/17 00:54 Magnesium 2.1 mg/dL (1.6-2.6) 12/31/17 00:54 Iron < 10 mcg/dL (50-170) L 12/31/17 08:51 % Saturation TNP 12/31/17 08:51 Transferrin 360 mg/dL (203-362) 12/31/17 08:51 Ferritin 13 ng/ml (10-120) 12/31/17 08:51 Total Bilirubin 0.5 mg/dL (0.3-1.0) 12/31/17 00:54 AST 10 Units/L (13-39) L 12/31/17 00:54 ALT 8 Units/L (7-52) 12/31/17 00:54 Alkaline Phosphatase 64 Units/L (34-104) 12/31/17 00:54 Troponin I < 0.03 ng/mL (< 0.04) 12/31/17 06:53 Serum Total Protein 6.0 g/dL (6.4-8.9) L 12/31/17 00:54 Albumin 3.6 g/dL (3.5-5.7) 12/31/17 00:54 Globulin 2.4 g/dL (2.4-3.5) 12/31/17 00:54 Albumin/Globulin Ratio 1.5 (1.1-2.2) 12/31/17 00:54 Triglycerides 62 mg/dL (< 150) 12/31/17 00:54 Cholesterol 136 mg/dL (< 200) 12/31/17 00:54 LDL Cholesterol, Calc 59 mg/dL (0-99) 12/31/17 00:54 VLDL Cholesterol, Calc 12 mg/dL (< 31) 12/31/17 00:54 HDL Cholesterol 65 mg/dL (40-59) H 12/31/17 00:54 Cholesterol/HDL Ratio 2.1 (0-4.9) 12/31/17 00:54 Vitamin B12 390 pg/mL (250-1100) 12/31/17 08:51 Folate 21.8 ng/mL (3.0-16.0) H 12/31/17 08:51 Blood Type A POSITIVE 12/31/17 06:53 Antibody Screen NEGATIVE 12/31/17 06:53 Crossmatch See Detail 12/31/17 06:[address] 12/31/17 18:41 IMPRESSION: Mild small vessel ischemic changes bilaterally No parenchymal or extra-axial hematoma. D/ / Isac Brand / Isac Brand Interpreting Provider: Isac Brand - Imaging Additional studies: ABD CT - 12/25/2015 - Peritoneum/Retroperitoneum: No free intraperitoneal air or free fluid. 4.3 x 4.4 cm infrarenal abdominal aortic aneurysm. Smaller aneurysm just proximal to the aortic bifurcation measuring 3.3 x 3 cm. Atherosclerosis. No lymphadenopathy. Anesthesia Exam Vital Signs Temp Pulse Resp BP Pulse Ox 01/01/18 11:43 18 90 01/01/18 11:04 98.8 F 94 18 120/71 90 01/01/18 07:51 18 94 01/01/18 07:05 98.2 F 100 18 114/64 94 01/01/18 04:35 98.1 F 86 14 107/69 96 01/01/18 04:09 18 95 01/01/18 00:28 98.1 F 94 14 124/64 97 12/31/17 23:51 19 97 12/31/17 21:35 95 12/31/17 20:50 98.0 F 89 16 125/85 95 12/31/17 20:01 20 94 12/31/17 18:38 97.7 F 100 18 134/70 96 12/31/17 17:52 97.6 F 14 132/71 93 12/31/17 17:37 98.3 F 102 16 121/77 93 12/31/17 15:37 16 92 Intake and Output 12/31/17 01/01/18 01/01/18 23:59 07:59 15:59 Intake Total 350 / 350 0 / 0 0 / 0 Output Total 0 / 0 0 / 0 Balance 350 / 350 0 / 0 0 / 0 Intake: Oral 0 / 0 0 / 0 0 / 0 Blood Product 350 / 350 Rbcs Leuko Poor As-1 Unit 350 / 350 [id number] Output: Urine 0 / 0 0 / 0 Other: Meal npo Stool Size Large Stool Consistency liquid Stool Color Green # Voids 1 # Bowel Movements 1 Blood Glucose* 131 116 NPO (# of Hours): MNOc - HEENT Pupil (Motor): Pupils equal, EOMI Mallampati: II Teeth: Normal Oral Opening: Greater than 3 - ELECTRIC SHIPYARD OPERATOR LOC: Confused ELECTRIC SHIPYARD OPERATOR Motor: Normal RUE, Normal LUE, Normal RLE, Normal LLE, Normal Face ELECTRIC SHIPYARD OPERATOR Sensory: Normal: RUE, LUE, RLE, LLE, Face - Cardiac Rhythm: Regular Murmur: None - Pulmonary Breath Sounds: bilateral Clear Respiratory Effort: Symmetrical Anesthesia Assess/Plan ASA Score: 3 (PVDz,) Modified Hulett Scale for Level of Consciousness: Cooperative, oriented, and tranquil Anesthetic Plan: MAC Monitoring Plan: Standard Monitors Recovery Plan: Other Anes Supervising Prov Stmt: Pt seen/evaluated, R&B Discussed, questions answered and consent obtained. - MD Elizabeth <LaPurga,Diony P - Last Filed: 01/01/18 18:21> Date of Encounter: 01/01/18 Anesthesia Results - Labs 01/01/18 00:43 01/01/18 08:23
[2018-01-01] MEDS ORDERED: 0.9 % Sodium Chloride 1,000 ML ONE (15:48)
[2018-01-01] MEDS: 0.9 % Sodium Chloride 1,000 ML IVC SCH (15:51)
[2018-01-01] MEDS ORDERED: Propofol 500 MG/50 ML INFUS..BTL ONE (18:54)
--- NOTE | 2018-01-01 19:56 | Anesthesia Evaluation Post Op ---
Date of Encounter: 01/01/18 Time of Encounter: 19:56 - Vital Signs Vital Signs: Last Vital Signs Temp 97.6 F 01/01/18 18:08 Pulse 99 01/01/18 18:08 Resp 16 01/01/18 18:08 BP 138/80 01/01/18 18:08 Pulse Ox 96 01/01/18 18:08 - Lungs Lungs: Clear Ascult./Percussion - Airway Airway: Non-obstructed - Cardiovascular Regular Rate - Mental Status Mental Status: Alert & Oriented, Answers Appropriately - Pain Pain Scale: 2 - Nausea Vomiting Nausea Vomiting: Not Present - Hydration Hydration: NPO - Discharge PostOp Status: Transfer Patient to floor
[2018-01-02] MEDS: Ipratropium/Albuterol Neb 3 ML IH SCH ×3 (04:21→11:52)
[2018-01-02 07:21] VITALS: BP 130/71
[2018-01-02] MEDS: *HR* LORazepam 0.5 MG TABLET PO SCH (08:53)
[2018-01-02] MEDS: Pantoprazole 40 MG VIAL IVP SCH (08:54)
[2018-01-02] MEDS: Baclofen 10 MG TABLET PO SCH (08:54)
--- NOTE | 2018-01-02 10:09 | Discharge Summary ---
Date of Encounter: 01/02/18 Time of Encounter: 10:08 - Discharge Diagnosis (1) Iron deficiency anemia Priority: Secondary Status: Acute Comments: Patient underwent EGD please see the report for details showing gastritis and a biopsy was done patient no active bleeding Qualifiers: Iron deficiency anemia type: unspecified iron deficiency Qualified Code(s) : D50.9 - Iron deficiency anemia, unspecified (2) Acute blood loss anemia Priority: Primary Status: Acute Comments: No more active bleeding patient is stable to be discharged after EGD was started on Protonix and Carafate and follow up with GI in 1-2 weeks (3) AAA (abdominal aortic aneurysm) Priority: Secondary Status: Chronic Comments: Stable on chronic Qualifiers: Presence of rupture: without rupture Qualified Code(s): I71.4 - Abdominal aortic aneurysm, without rupture (4) CAD (coronary artery disease) Priority: Secondary Status: Chronic Comments: No chest pain Qualifiers: Coronary Disease-Associated Artery/Lesion type: [place] artery [place] vs. transplanted heart: [place] heart Associated angina: angina presence unspecified Qualified Code(s): I25.10 - Atherosclerotic heart disease of [place] coronary artery without angina pectoris (5) COPD (chronic obstructive pulmonary disease) Priority: Secondary Status: Chronic Comments: No active wheezing Qualifiers: COPD type: emphysema Emphysema type: unspecified Qualified Code(s): J43.9 - Emphysema, unspecified (6) HTN (hypertension) Priority: Secondary Status: Chronic Comments: Chronic and well controlled Qualifiers: Hypertension type: essential hypertension Qualified Code(s): I10 - Essential (primary) hypertension (7) Tobacco use Priority: Secondary Status: Chronic Comments: Chronic - Discharge Medications Prescriptions: Pantoprazole Sodium [Protonix] 40 mg PO DAILY #303 tablet. Sucralfate [Carafate] 1 gm PO TID #90 tablet Home Medications: Albuterol Sulfate [Albuterol Inhaler] 2 puff IH Q4HR PRN 09/19/15 [History] Atorvastatin [Lipitor] 80 mg PO DAILY 09/19/15 [History] Baclofen [Lioresal] 5 - 10 mg PO TID 09/19/15 [History] Carvedilol [Coreg] 3.125 mg PO BID 09/19/15 [History] Clopidogrel [Plavix] 75 mg PO DAILY 09/19/15 [History] LORazepam [Ativan] 0.5 mg PO TID PRN 09/19/15 [History] Omeprazole [PriLOSEC] 20 mg PO DAILY 09/19/15 [History] Calcium Carbonate/Vitamin D3 [Calcium 1,000 + D3 Caplet] 1 tab PO DAILY [History] Aspirin Enteric Coated [Aspirin EC] 81 mg PO DAILY 12/30/17 [History] HYDROcodone/Acet 7.5/325 mg [Ona 7.5-325 mg] 1 tab PO Q6H PRN 12/30/17 [ History] Hydrochlorothiazide [Microzide] 12.5 mg PO DAILY 12/30/17 [History] Lisinopril [Zestril] 20 mg PO DAILY 12/31/17 [History] Pantoprazole Sodium [Protonix] 40 mg PO DAILY #303 tablet. 01/02/18 [Rx] Sucralfate [Carafate] 1 gm PO TID #90 tablet 01/02/18 [Rx] Allergies/Adverse Reactions: 3 Allergy/AdvReac Type Severity Reaction Status Date / Time Sulfa (Sulfonamide Allergy Hives Verified 12/30/17 15:35 Antibiotics) Procedures/tests Complete & Pending: Procedures Performed prior 72 hours Category Date Time Status CT head/brain wo con [CT] Stat Cat Scan 12/31/17 18:41 Completed Date of admission: 12/30/17 17:40 Primary care physician: Evelyn Epps CNP Consults: 12/30/17 19:12 Consult to Physician [CONS] Routine Consulting Provider: Elisa Riddle Reason for Consult: gi bleed Time Notified: 19:14 Call Completed: No Discharging clinician: Susan Nath Anticipated date of discharge: 01/02/18 - Patient Status Disposition: Home, Self-Care Functional capacity at discharge: independent ambulation Overall status at discharge: patient is progressing back to baseline - Discharge Instructions Follow Up With: Elisa Riddle MD [Partnered Physician] - - Diet and Activity Activity: other Diet: advance to your usual diet Interval History: atient with history of breast cancer about 8 years ago underwent radiation, COPD, CAD said had AL 3 years ago had a cardiac cath no intervention done also smoking history and abdominal aneurysm 4.9 cm followed every 6 months studies. Patient was sent to the emergency room by primary physician due to anemia hemoglobin was about 6 she was sent to [place] emergency room ER hemoglobin was 5.6 patient has symptoms generalized weakness, shortness of breath especially with exertion and palpitation also she is dizzy and lightheaded especially with exertio ./ DR Riddle has been notified and asked her to to be transferred here for further evaluation she was given 1 unit of blood transfusion. Of note she is not having any chest pain Patient was transfused hemoglobin remained stable at 10 no more bleeding patient underwent EGD please see report for details showing gastritis she is stable to be discharged home or add Protonix and Carafate and she will follow up with GI in about 1-2 weeks and also had primary physician Hospital course: Ms. Olson is a 77 year old female - Time Spent with Patient Total time spent providing and/or coordinating discharge services: Greater than 30 minutes - Constitutional Vitals: Temp Pulse Resp BP Pulse Ox 98.2 F 84 18 130/71 94 01/02/18 07:20 01/02/18 07:20 01/02/18 08:05 01/02/18 07:20 01/02/18 08:05 General appearance: Present: A&O X 3
[2018-01-02] MEDS ORDERED: Acetaminophen 325 MG TABLET PO ONE (11:04)
== END 2018-01-02 12:40 | disposition home or self-care (01) | DRG 812 ==
LOC: 3ANU 17:40
PROVIDERS: ADMIT Internal Medicine; ATTEND Internal Medicine